=== PATIENT | female | born 1980 | race African-American/Black ===

== ENCOUNTER 2019-07-16 09:51 | Inpatient (IN) | payer OTHER ==
[~2019-07-16] VITALS: Ht 162.6 cm; Wt 62.3 kg
[2019-07-16 12:30] VITALS: BP 145/87
[2019-07-16] MEDS ORDERED: ACETAMINOPHEN 500 MG TABLET PO PRN (13:15)
[2019-07-16] MEDS ORDERED: NAPROXEN 500 MG TABLET PO PRN (13:15)
[2019-07-16] MEDS ORDERED: LORazepam 0.5 MG TABLET PO PRN (13:15)
[2019-07-16] MEDS ORDERED: diphenhydrAMINE 50 MG/ML VIAL IVP PRN (14:00)
[2019-07-16] MEDS: GABAPENTIN 100 MG CAPSULE. PO SCH ×2 (14:00→21:43)
[2019-07-16] MEDS ORDERED: diphenhydrAMINE HCL 25 MG CAPSULE PO PRN (14:00)
[2019-07-16] MEDS ORDERED: MORPHINE SULFATE 4 MG/ML VIAL. IV PRN (14:00)
[2019-07-16] MEDS: busPIRone 10 MG TABLET. PO SCH ×2 (14:00→21:00)
--- NOTE | 2019-07-16 14:02 | NUR ---
The patient, CHELSEA YATES, 39 y/o, F admitted by AJAY TAYLOR MD, was given written information regarding hospital policies, unit procedures and contact persons. Valuables were checked and logged. Pt was seen at [facility] office on Fri. for a scratch to R hand and R eye. 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 Pt was given eye ointment abt. Symptoms became worse, Swelling in hand increased, temp of hand was elevated, however pt has been Afebrile. Pt called [facility] office today to update on S/S. Pt was sent to ER for treatment. 3 gm Unicef admin'd. admitted pt to [facility] for further eval by I.D. Consult placed to Radha Perez. Home meds restarted. Cont. to monitor.
[2019-07-16] MEDS: CETIRIZINE HCL 10 MG TABLET. PO SCH (14:24)
[2019-07-16 15:00] VITALS: BP 140/99
[2019-07-16] MEDS ORDERED: ONDANSETRON PF 4 MG/2 ML VIAL. IV PRN (15:00)
[2019-07-16 19:00] VITALS: BP 151/96
[2019-07-16] MEDS ORDERED: traZODone 50 MG TABLET. PO SCH (21:00)
[2019-07-16] MEDS: traZODone 100 MG TABLET. PO SCH (21:43)
[2019-07-16 23:05] VITALS: BP 129/87
[2019-07-17 05:21] VITALS: BP 102/62
[2019-07-17 07:00] VITALS: BP 122/86
[2019-07-17] MEDS: CITALOPRAM 20 MG TABLET. PO SCH (08:28)
[2019-07-17] MEDS: LISINOPRIL 10 MG TABLET PO SCH (08:29)
[2019-07-17] MEDS: GABAPENTIN 100 MG CAPSULE. PO SCH ×3 (08:29→20:59)
[2019-07-17] MEDS: CETIRIZINE HCL 10 MG TABLET. PO SCH (08:35)
[2019-07-17] MEDS: STRATTERA 25 MG PO SCH (08:35)
[2019-07-17] MEDS: busPIRone 10 MG TABLET. PO SCH ×2 (08:35→20:59)
[2019-07-17 11:00] VITALS: BP 133/94
[2019-07-17] MEDS: AMPICILLIN/SULBACTAM 1.5 GM in IV NORMAL SALINE 50ML 50 ML IV SCH ×2 (11:32→17:31)
--- NOTE | 2019-07-17 11:37 | HP ---
ADMIT DATE: 07/16/2019 The patient is a 39-year-old female, who was bitten and clawed by a cat that was trying to protect itself from a dog. 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 This happened the last 5 days ago, on 07/12/2019. Apparently, on 07/13/2019, her right middle finger became more swollen. She went to [facility] where she was prescribed Augmentin and antibiotic ointment for her right eye as the right eye was scratched and she has also what seems to be a corneal abrasion. By description, on Friday, her swelling got worse and on , the swelling extended proximally to the wrist and right forearm. She was seen in the Emergency Room and has had blood work and culture, was given Unasyn and was transferred to [facility]. Her swelling of the right arm, hand and forearm as well as eye has worsened according to the description of the ER physician and she seemed to be not responding to the oral antibiotic. She apparently was given Unasyn and was transferred here to continue with IV Unasyn and to consult the Infectious Disease specialist as according to the ER physician, her symptoms and the swelling is worse despite treatment with oral and IV Unasyn. PAST MEDICAL HISTORY: Significant for hypertension. She has also degenerative disk disease at C4-C5 with some tingling and numbness in right arm and generalized osteoarthritis. PAST SURGICAL HISTORY: Significant for right ankle surgery. ALLERGIES: She has no known drug allergies. She is normally on lisinopril/hydrochlorothiazide 10/12.5 mg once a day. She is also taking naproxen and alternating with Tylenol for pain. FAMILY HISTORY: She has 4 brothers and 2 sisters, all have high blood pressure and all are older. Her father is still alive and has hypertension and prostate cancer, in remission. Mother is alive and has congestive heart failure and type 2 diabetes. SOCIAL HISTORY: She is , has 1 daughter. She does not smoke. Drinks alcohol occasionally. Does not use any drugs. 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 PHYSICAL EXAMINATION: GENERAL: On examining her, she looked well and was clearly in no apparent respiratory distress. No pallor, jaundice, cyanosis or thyromegaly. No jugular venous distension. No limb edema. VITAL SIGNS: Her heart rate was 70, blood pressure was 134/98, temperature was 98.4, respiratory rate was 16, and oxygen saturation was 99%. HEAD, EYES, EARS, NOSE AND THROAT: Showed normocephalic, atraumatic. NECK: Supple. HEART: Showed normal first and second heart sounds. No gallop, rub or murmur. CHEST: Clear to auscultation. No crepitation or rhonchi. ABDOMEN: Distended, soft, nontender. No guarding or rigidity. No organomegaly. All hernial orifice intact. Bowel sounds normal. NEUROLOGIC: She was awake, alert, responding appropriately. All cranial nerves intact. According to the ER physician, her right arm and right forearm were markedly swollen and worse despite treatment. Her lab work showed a white cell count of 3800, hemoglobin 12.9, hematocrit 38, MCV 94 and platelet count of 231,000. Her chemistries showed a serum sodium 142, potassium 4, chloride 104, bicarbonate 31, an anion gap of 7, BUN 9, creatinine 0.9, estimated GFR was 84 mL per minute, her glucose was 81, calcium was 8.1. Total bilirubin, AST, ALT, alkaline phosphatase were normal. Total protein was 6.8, albumin 3.7. Her sed rate was 8 mmHg and C-reactive protein was 36 mg/dL. Urinalysis was unremarkable. She has had x-ray of her right hand, which showed no acute fracture or dislocation. No radiopaque foreign body. No soft tissue emphysema. She was transferred to [facility] with the bite from a cat and according to them, failure of outpatient antibiotic therapy. I actually spoke with the nursing staff last night to continue with IV Unasyn, to consult the Infectious Disease specialist and repeat her lab work tomorrow. AJAY TAYLOR MD DR: CHRIS/heather JOB#: [id number] / [id number]
--- NOTE | 2019-07-17 11:46 | PN ---
DATE: 07/17/2019 SUBJECTIVE: The patient is sitting at the edge of the bed comfortably, in no apparent distress. She continued to complain of pain and swelling and difficulty flexing her right middle finger, although the swelling has generally slightly better today. There is no swelling in her right upper eyelid. She denied any problem with vision. PHYSICAL EXAMINATION: GENERAL: When I examined her, she looked well. There was no pallor, jaundice, cyanosis, or thyromegaly. No jugular venous distension. No limb edema. VITAL SIGNS: Her heart rate was 60, blood pressure 122/86, temperature was 98, respiratory rate was 18 and oxygen saturation was 98%. HEAD, EYES, EARS, NOSE AND THROAT: Showed normocephalic, atraumatic. NECK: Supple. HEART: Showed normal first and second heart sounds. No gallop or murmur. CHEST: Clear to auscultation. No crepitation or rhonchi. ABDOMEN: Distended, soft, nontender. NEUROLOGIC: She is grossly intact. She still has some swelling on the dorsum of the right hand and the right finger with limited flexion. ASSESSMENT: Swelling and cellulitis of the right hand due to cat bite and to continue with Unasyn 1.5 mg IV every 6 hourly and repeat her lab work tomorrow and decide the further management accordingly. AJAY TAYLOR MD DR: CHRIS/heather JOB#: [id number] / [id number]
[2019-07-17 15:00] VITALS: BP 135/81
[2019-07-17] MEDS ORDERED: ASPIRIN 325 MG TABLET PO ONE (18:00)
[2019-07-17 19:00] VITALS: BP 130/95
[2019-07-17] MEDS: traZODone 100 MG TABLET. PO SCH (20:59)
[2019-07-17 23:00] VITALS: BP 107/67
[2019-07-18] VITALS (7 sets, daily range): BP systolic 97–132; BP diastolic 56–84
[2019-07-18] MEDS: AMPICILLIN/SULBACTAM 1.5 GM in IV NORMAL SALINE 50ML 50 ML IV SCH ×5 (00:18→23:30)
[2019-07-18 05:40] LABS: ALBUMIN 2.9 g/dL (3.4-5.0); CALCIUM 8.1 mg/dL (8.5-10.1); CREATININE 0.9 mg/dL (0.6-1.0); GFR 83.9; POTASSIUM 3.7 mmol/L (3.5-5.1); TOTAL BILIRUBIN 0.3 mg/dL (0.2-1.0); TOTAL PROTEIN 5.8 g/dL (6.4-8.2)
[2019-07-18 06:30] LABS: BASO % 1 % (0-3); EOS # 0.2 x10^3/uL (0.0-0.7); EOS % 6 % (0-3); HEMATOCRIT 34.9 % (36.0-47.0); LYMPH # 1.7 x10^3/uL (1.0-4.8); LYMPH % 47 % (24-48); MEAN CORPUSCULAR HEMOGLOBIN 32 pg (25-35); MEAN CORPUSCULAR HGB CONC 34 g/dL (31-37); MEAN CORPUSCULAR VOLUME 93 fL (79-100); MONO # 0.3 x10^3/uL (0.0-1.1); MONO % 10 % (0-9); NEUT # 1.3 x10^3/uL (1.8-7.7); NEUT % 37 % (31-73); PLATELET COUNT 213 x10^3/uL (140-400); RED BLOOD COUNT 3.76 x10^6/uL (3.50-5.40); RED CELL DISTRIBUTION WIDTH 12.1 % (11.5-14.5); WHITE BLOOD COUNT 3.6 x10^3/uL (4.0-11.0)
--- NOTE | 2019-07-18 07:48 | PN ---
DATE: 07/18/2019 SUBJECTIVE: The patient is resting flat, sleeping comfortably in her bed, in no apparent distress. Nursing staff did not voice any concerns that she has an uneventful night. PHYSICAL EXAMINATION: GENERAL: On examining her, she looked well and was clearly in no apparent respiratory distress, pale, but no jaundice, cyanosis or thyromegaly. No jugular venous distention. No limb edema. VITAL SIGNS: Her heart rate was 59, blood pressure was 97/56, temperature was 98.3, respiratory rate was 18 and oxygen saturation was 98%. The rest of clinical examination is stable. Her right hand, right middle finger, right forearm swelling much improved. LABORATORY DATA: Her lab work this morning showed a white cell count 3600, hemoglobin 12, hematocrit 34.9, MCV 93, and platelet count 213,000 with normal manual differential. Her chemistry showed a serum sodium 143, potassium 3.7, chloride 108, bicarbonate 31, anion gap of 4, BUN 11, creatinine 0.9, estimated GFR was 84 mL per minute. Her glucose 101, calcium was 8.1. Total bilirubin, AST, ALT, alkaline phosphatase were normal. Total protein was 5.8, albumin 2.9. ASSESSMENT: Swelling, cellulitis, right hand due to a cat bite. PLAN: To continue Unasyn 1.5 g IV q. 6 hourly. We will evaluate her tomorrow and hopefully can be discharged home to continue on oral Augmentin. AJAY TAYLOR MD DR: CHRIS/heather JOB#: [id number] / [id number]
[2019-07-18] MEDS: busPIRone 10 MG TABLET. PO SCH ×2 (09:00→21:00)
[2019-07-18] MEDS: STRATTERA 25 MG PO SCH (09:00)
[2019-07-18] MEDS: CETIRIZINE HCL 10 MG TABLET. PO SCH (09:00)
[2019-07-18] MEDS: GABAPENTIN 100 MG CAPSULE. PO SCH ×3 (11:15→20:45)
[2019-07-18] MEDS: CITALOPRAM 20 MG TABLET. PO SCH (11:16)
[2019-07-18] MEDS: LISINOPRIL 10 MG TABLET PO SCH (11:16)
[2019-07-18] MEDS: traZODone 100 MG TABLET. PO SCH (20:45)
[2019-07-18] MEDS: LACTOBACILLUS RHAMNOSUS GG 1 CAPSULE. PO SCH (20:45)
[2019-07-19 03:00] VITALS: BP 109/66
[2019-07-19] MEDS: AMPICILLIN/SULBACTAM 1.5 GM in IV NORMAL SALINE 50ML 50 ML IV SCH ×2 (06:02→11:41)
[2019-07-19 07:00] VITALS: BP 114/75
[2019-07-19] MEDS: CETIRIZINE HCL 10 MG TABLET. PO SCH (09:03)
[2019-07-19] MEDS: CITALOPRAM 20 MG TABLET. PO SCH (09:03)
[2019-07-19] MEDS: busPIRone 10 MG TABLET. PO SCH (09:03)
[2019-07-19] MEDS: LISINOPRIL 10 MG TABLET PO SCH (09:03)
[2019-07-19] MEDS: LACTOBACILLUS RHAMNOSUS GG 1 CAPSULE. PO SCH (09:03)
[2019-07-19] MEDS: GABAPENTIN 100 MG CAPSULE. PO SCH (09:03)
[2019-07-19] MEDS ORDERED: AMOX1TAB61 PO (09:55)
[2019-07-19] MEDS ORDERED: FLUC150T PO (09:55)
--- NOTE | 2019-07-19 10:38 | DS ---
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 She was originally treated with oral Augmentin; however, her right middle finger was getting more swollen. She went to [facility] where she was prescribed Augmentin antibiotic ointment for right eye as her right eye was scratched and has what seemed to be corneal abrasion. However, the patient stated her swelling has got worse and therefore, she was seen again in the Emergency Room, was given Unasyn IV and [facility]. We continued the IV Unasyn and she did well. Her swelling and pain have largely subsided. She remained afebrile and her white cell count was sitting on the lower side. PHYSICAL EXAMINATION: GENERAL: When I saw her today, she was sitting at the edge of the bed comfortably, in no apparent respiratory distress. No pallor, jaundice, cyanosis or thyromegaly. No jugular venous distention. No limb edema. VITAL SIGNS: Her heart rate was 68, blood pressure was 114/75, temperature was 97.9, respiratory rate was 17 and oxygen saturation was 98%. EXTREMITIES: The right upper extremity showed the swelling has largely subsided. She is now able to flex all her fingers without difficulty. LABORATORY WORK: Showed white cell count of 3600, hemoglobin 12, hematocrit 34, MCV 93, and platelet count 213,000. Her chemistry showed serum sodium 143, potassium 3.7, chloride 108, bicarbonate 31, anion gap of 4, BUN 11, creatinine 0.9, estimated GFR was 84 mL per minute. Her glucose was 101, calcium was 8.1. Total bilirubin, AST, ALT, alkaline phosphatase were normal. Total protein was 5.8. Albumin was 3.9. DISCHARGE MEDICATIONS: She was discharged home to continue on Augmentin 875 mg 1 tablet twice a day for 5 more days and Diflucan 150 mg p.o. once for vaginal candidiasis for 3 days. FINAL DISCHARGE DIAGNOSES: Swelling and cellulitis of the right hand due to cat bite, resolving, in fact has resolved and has vaginal candidiasis, for which she was started on Diflucan. Other medical problems include hypertension, degenerative disk disease at C4-C5 and generalized osteoarthritis. AJAY TAYLOR MD DR: Gunnar JOB#: [id number] / [id number]
[2019-07-19 11:00] VITALS: BP 132/93
[2019-07-19 11:13] LABS: C-REACTIVE PROTEIN 6.9 mg/L (0-3.3); CALCIUM 7.9 mg/dL (8.5-10.1); CREATININE 0.8 mg/dL (0.6-1.0); GFR 96.1; POTASSIUM 3.6 mmol/L (3.5-5.1)
[2019-07-19 11:24] LABS: BASO % 1 % (0-3); EOS # 0.1 x10^3/uL (0.0-0.7); EOS % 4 % (0-3); HEMATOCRIT 39.1 % (36.0-47.0); HEMOGLOBIN 13.2 g/dL (12.0-15.5); LYMPH # 1.4 x10^3/uL (1.0-4.8); LYMPH % 36 % (24-48); MEAN CORPUSCULAR HEMOGLOBIN 31 pg (25-35); MEAN CORPUSCULAR HGB CONC 34 g/dL (31-37); MEAN CORPUSCULAR VOLUME 93 fL (79-100); MONO # 0.3 x10^3/uL (0.0-1.1); MONO % 8 % (0-9); NEUT # 2.1 x10^3/uL (1.8-7.7); NEUT % 52 % (31-73); PLATELET COUNT 228 x10^3/uL (140-400); RED BLOOD COUNT 4.21 x10^6/uL (3.50-5.40); RED CELL DISTRIBUTION WIDTH 12.3 % (11.5-14.5)
--- NOTE | 2019-07-19 14:13 | NUR ---
Discharge Note: Patient was discharged home with self care. Patients IV was discontinued without any complications per RN. Patient was given discharge summary/instructions, follow-ups, prescriptions and educational material. Patient did not have any further questions or concerns. Patient ambulated to the ER entrance accompanied by MELINA Hudson, with all personal belongings, where her car was parked and drive herself home.
== END 2019-07-19 13:15 | disposition home or self-care (01) | DRG 603 ==
LOC: 5 NORTH 11:53
PROVIDERS: ADMIT Internal Medicine; ATTEND Internal Medicine
DX: L03.113 Cellulitis of right upper limb (principal); B37.3 Candidiasis of vulva and vagina; I10 Essential (primary) hypertension; M15.9 Polyosteoarthritis, unspecified; M50.321 Other cervical disc degeneration at C4-C5 level; W55.01XA Bitten by cat, initial encounter; S05.01XA Injury of conjunctiva and corneal abrasion without foreign body, right eye, initial encounter; Z82.49 Family history of ischemic heart disease and other diseases of the circulatory system; Z83.3 Family history of diabetes mellitus; Y93.89 Activity, other specified; Y92.89 Other specified places as the place of occurrence of the external cause; Y99.8 Other external cause status
CPT/HCPCS: 36415; 80048; 80053; 85025; 85651; 86140; J0295; G0378